=== PATIENT | male | born 1985 | race Caucasian/White ===

== ENCOUNTER 2018-01-18 09:02 | Emergency (ER) | payer OTHER ==
[~2018-01-18] VITALS: Ht 190.5 cm; Wt 103.4 kg
[2018-01-18 09:17] VITALS: Ht 190.5 cm; Wt 103.4 kg
[2018-01-18 13:32] VITALS: BP 141/71
== END 2018-01-18 13:28 | disposition home or self-care (01) ==
LOC: ED 09:02
DX: K57.90 Diverticulosis of intestine, part unspecified, without perforation or abscess without bleeding (principal)